=== PATIENT | female | born 1990 | race American Indian/Alaskan Native ===

== ENCOUNTER 2018-01-24 00:45 | Emergency (ER) | payer SELFPAY ==
[2018-01-24 00:50] VITALS: BP 113/72
[2018-01-24 03:04] LABS: Basophils # (Auto) 0.1 K/mm3 (0.0-0.1); Basophils % (Auto) 0.8 % (0.0-1.8); Eosinophils # (Auto) 0.1 K/mm3 (0.0-0.4); Eosinophils % (Auto) 1.5 % (0.0-4.3); Hematocrit 39.6 % (30.3-42.9); Hemoglobin 13.9 gm/dl (10.1-14.3); Lymphocytes # (Auto) 3.3 K/mm3 (1.2-5.4); Lymphocytes % (Auto) 41.6 % (13.4-35.0); Mean Corpuscular HGB Conc 35 % (30-34); Mean Corpuscular Hemoglobin 30 pg (28-32); Mean Corpuscular Volume 86 fl (79-97); Monocytes # (Auto) 0.7 K/mm3 (0.0-0.8); Platelet Count 252 K/mm3 (140-440)
[2018-01-24 06:05] LABS: Bilirubin,Urine NEG (Negative); Blood,Urine LG (Negative); Color,Urine Yellow (Yellow); Mucus,Urine 3+ /HPF
--- NOTE | 2018-01-24 06:40 | Emergency Department Report ---
ED Female HPI - General Chief complaint: Vaginal Bleeding Stated complaint: VAGINAL BLEEDING Time Seen by Provider: 01/24/18 06:36 Source: patient Mode of arrival: Ambulatory Limitations: No Limitations - History of Present Illness Initial comments: This is a 27-year-old female who was previously on known to this provider. She does not have a local primary care doctor. She has no chronic medical conditions. She presents to the ER with a complaint of intermittent crampy vaginal bleeding for months. It does not radiate anywhere. It has no exacerbating or relieving factors. No lightheadedness, no syncope. No urinary symptoms. Not currently having pain at this time. MD Complaint: vaginal bleeding -: Gradual, month(s) Severity: mild Quality: cramping Consistency: intermittent Improves with: none Worsens with: none Are you Now?: No Associated Symptoms: vaginal bleeding. denies: vaginal discharge, abdominal pain, nausea/vomiting, fever/chills, headaches, loss of appetite, dysuria, hematuria, rash, seizure, shortness of breath, syncope, weakness - Related Data Sexually active: Yes Allergies Allergy/AdvReac Type Severity Reaction Status Date / Time No Known Allergies Allergy Unverified 01/24/18 02:40 ED Review of Systems ROS: Stated complaint: VAGINAL BLEEDING Other details as noted in HPI Comment: All other systems reviewed and negative ED Past Medical Hx - Past Medical History Previous Medical History?: No - Surgical History Past Surgical History?: No - Social History Smoking Status: Never Smoker ED Physical Exam - General Limitations: No Limitations General appearance: alert, in no apparent distress - Head Head exam: Present: atraumatic, normocephalic - Eye Eye exam: Present: normal appearance, EOMI. Absent: nystagmus - ENT ENT exam: Present: normal exam, normal orophraynx, mucous membranes moist, normal external ear exam - Neck Neck exam: Present: normal inspection, full ROM - Respiratory Respiratory exam: Present: normal lung sounds bilaterally. Absent: respiratory distress - Cardiovascular Cardiovascular Exam: Present: regular rate, normal rhythm, normal heart sounds. Absent: systolic murmur, diastolic murmur, rubs, gallop - GI/Abdominal GI/Abdominal exam: Present: soft, normal bowel sounds. Absent: distended, tenderness, guarding, rebound, rigid, pulsatile mass - Extremities Exam Extremities exam: Present: normal inspection, full ROM, normal capillary refill , other (there is no palpable cord. There is a negative Homans sign). Absent: pedal edema, joint swelling, calf tenderness - Back Exam Back exam: Present: normal inspection, full ROM. Absent: tenderness, CVA tenderness (R), paraspinal tenderness, vertebral tenderness - Neurological Exam Neurological exam: Present: alert, oriented X3, CN II-XII intact, normal gait, other (Extraocular movements intact. Tongue midline. No facial droop. Facial sensation intact to light touch in the V1, V2, V3 distribution bilaterally. 5 and 5 strength in 4 extremities.. Sensation is intact to light touch in 4 extremities.). Absent: motor sensory deficit - Psychiatric Psychiatric exam: Present: normal affect, normal mood - Skin Skin exam: Present: warm, dry, intact, normal color. Absent: rash ED Course Vital Signs 01/24/18 01/24/18 00:44 02:34 Temperature 98.4 F 98.4 F Pulse Rate 67 67 Respiratory 16 17 Rate Blood Pressure 113/72 113/72 O2 Sat by Pulse 98 99 Oximetry ED Medical Decision Making - Lab Data Result diagrams: 01/24/18 02:49 Vital Signs 01/24/18 01/24/18 00:44 02:34 Temperature 98.4 F 98.4 F Pulse Rate 67 67 Respiratory 16 17 Rate Blood Pressure 113/72 113/72 O2 Sat by Pulse 98 99 Oximetry Lab Results 01/24/18 01/24/18 01/24/18 Range/Units 02:49 02:49 02:49 WBC 7.9 (4.5-11.0) K/mm3 RBC 4.60 (3.65-5.03) M/mm3 Hgb 13.9 (10.1-14.3) gm/dl Hct 39.6 (30.3-42.9) % MCV 86 (79-97) fl MCH 30 (28-32) pg MCHC 35 H (30-34) % RDW 14.0 (13.2-15.2) % Plt Count 252 (140-440) K/mm3 Lymph % (Auto) 41.6 H (13.4-35.0) % [place] % (Auto) 9.0 H (0.0-7.3) % Eos % (Auto) 1.5 (0.0-4.3) % Baso % (Auto) 0.8 (0.0-1.8) % Lymph # 3.3 (1.2-5.4) K/mm3 [place] # 0.7 (0.0-0.8) K/mm3 Eos # 0.1 (0.0-0.4) K/mm3 Baso # 0.1 (0.0-0.1) K/mm3 Seg Neutrophils % 47.1 (40.0-70.0) % Seg Neutrophils # 3.7 (1.8-7.7) K/mm3 HCG, Quant < 2 (0-4) mIU/mL Urine Color (Yellow) Urine Turbidity (Clear) Urine pH (5.0-7.0) Ur Specific [place] (1.003-1.030) Urine Protein (Negative) mg/dL Urine Glucose (UA) (Negative) mg/dL Urine Ketones (Negative) mg/dL Urine Blood (Negative) Urine Nitrite (Negative) Urine Bilirubin (Negative) Urine Urobilinogen (<2.0) mg/dL Ur Leukocyte Esterase (Negative) Urine WBC (Auto) (0.0-6.0) /HPF Urine RBC (Auto) (0.0-6.0) /HPF U Epithel Cells (Auto) (0-13.0) /HPF Urine Mucus /HPF Blood Type O POSITIVE Antibody Screen Negative 01/24/18 Range/Units 05:44 WBC (4.5-11.0) K/mm3 RBC (3.65-5.03) M/mm3 Hgb (10.1-14.3) gm/dl Hct (30.3-42.9) % MCV (79-97) fl MCH (28-32) pg MCHC (30-34) % RDW (13.2-15.2) % Plt Count (140-440) K/mm3 Lymph % (Auto) (13.4-35.0) % [place] % (Auto) (0.0-7.3) % Eos % (Auto) (0.0-4.3) % Baso % (Auto) (0.0-1.8) % Lymph # (1.2-5.4) K/mm3 [place] # (0.0-0.8) K/mm3 Eos # (0.0-0.4) K/mm3 Baso # (0.0-0.1) K/mm3 Seg Neutrophils % (40.0-70.0) % Seg Neutrophils # (1.8-7.7) K/mm3 HCG, Quant (0-4) mIU/mL Urine Color Yellow (Yellow) Urine Turbidity Clear (Clear) Urine pH 6.0 (5.0-7.0) Ur Specific [place] 1.025 (1.003-1.030) Urine Protein 30 mg/dl (Negative) mg/dL Urine Glucose (UA) Neg (Negative) mg/dL Urine Ketones Neg (Negative) mg/dL Urine Blood Lg (Negative) Urine Nitrite Neg (Negative) Urine Bilirubin Neg (Negative) Urine Urobilinogen 2.0 (<2.0) mg/dL Ur Leukocyte Esterase Neg (Negative) Urine WBC (Auto) 5.0 (0.0-6.0) /HPF Urine RBC (Auto) 14.0 (0.0-6.0) /HPF U Epithel Cells (Auto) 3.0 (0-13.0) /HPF Urine Mucus 3+ /HPF Blood Type Antibody Screen - Medical Decision Making Differential diagnosis, including not limited to: Dysfunctional uterine bleeding , , menstruation Assessment and plan: 27-year-old female with the complaint of months of vaginal bleeding. She is afebrile with reassuring vital signs. Her abdomen is soft and benign. Hemoglobin and hematocrit are appropriate, the patient is not , and she does not have any symptoms to suggest urinary tract infection. She declined a gynecologic examination in the ER and prefers to have it performed as an outpatient. She will be referred to local gynecology. Critical care attestation.: If time is entered above; I have spent that time in minutes in the direct care of this critically ill patient, excluding procedure time. ED Disposition Clinical Impression: History of vaginal bleeding Disposition: TO HOME OR SELFCARE Is pt being admited?: No Does the pt Need Aspirin: No Condition: Good Instructions: Dysfunctional Uterine Bleeding (ED) Additional Instructions: Follow-up with a manager environmental services within the next 3-4 weeks. Return to the ER right away with new pain, worsened pain, migration of pain, intractable nausea or vomiting, confusion, inability to tolerate liquid feeds, bleeding more than 2 pads soaked per hour, lightheadedness, confusion, loss of consciousness. Referrals: PRIMARY CARE, [Primary Care Provider] - 3-5 Days [facility] [Provider Group] - 3-5 Days [facility] [Provider Group] - 3-5 Days [facility] [Provider Group] - 3-5 Days
[2018-01-24] MEDS ORDERED: MOTRIN PO ONE (06:47)
== END 2018-01-24 07:36 | disposition home or self-care (01) ==
LOC: ED 00:45
DX: N93.9 Abnormal uterine and vaginal bleeding, unspecified (principal)
CPT/HCPCS: 36415; 81001; 84702; 85025; 86850; 86900; 86901; 99283